=== PATIENT | female | born 1965 | race African-American/Black ===

== ENCOUNTER 2019-05-19 05:50 | Inpatient (IN) | payer OTHER ==
[2019-05-13 12:54] LABS: BASOPHILS % (AUTO) 1.2 % (0.0-2.0); HEMATOCRIT 38.6 % (36-46); HEMOGLOBIN 12.4 g/dL (12.0-16.0); LYMPHOCYTES # (AUTO) 1.8 K/uL (1.0-4.8); LYMPHOCYTES % (AUTO) 24.4 % (22.0-44.0); MEAN CORPUSCULAR HEMOGLOBIN 29.7 pg (26.0-34.0); MEAN CORPUSCULAR HGB CONC 32.1 G/dL (31.0-37.0); MEAN CORPUSCULAR VOLUME 93 fL (80-100); MONOCYTES # (AUTO) 0.8 K/uL (0.1-1.0); MONOCYTES % (AUTO) 10.5 % (2.0-9.0); NEUTROPHILS # (AUTO) 4.7 K/uL (1.8-7.7); NEUTROPHILS % (AUTO) 62.9 % (40.0-70.0); PLATELET COUNT (AUTO) 374 K/uL (150-450); RED BLOOD CELL COUNT(AUTO) 4.17 MIL/uL (4.00-5.20); RED CELL DISTRIBUTION WIDTH 14.3 % (11.5-14.5)
[2019-05-13 13:02] LABS: ANION GAP 11 mmol/L (8-16); CALCIUM, TOTAL 9.1 mg/dL (8.8-10.5); CARBON DIOXIDE 24 mmol/L (22-29); CHLORIDE 106 mmol/L (98-107); CREATININE 1.08 mg/dL (0.60-1.30); GLOMERULAR FILTR. RATE CALC > 60 mL/min (>60); GLUCOSE,RANDOM 215 mg/dL (70-110); POTASSIUM 3.8 mmol/L (3.5-5.1); SODIUM SERUM 141 mmol/L (136-145); UREA NITROGEN, BLOOD 16 mg/dL (7-18)
[2019-05-13 13:07] LABS: ALANINE AMINOTRANSFERASE 29 U/L (12-78); ALBUMIN 3.4 g/dL (3.4-5.0); ALKALINE PHOSPHATASE 117 U/L (46-116); ASPARTATE AMINOTRANSFERASE 15 U/L (15-37); BILIRUBIN,TOTAL 0.5 mg/dL (0.1-1.0); INR 0.9 (0.9-1.1); PROTHROMBIN TIME 9.6 SEC (9.4-11.6); TOTAL PROTEIN, SERUM 7.4 g/dL (6.4-8.2)
[2019-05-13 13:08] LABS: HEMOGLOBIN A1C 7.5 % (4.5-6.2)
[~2019-05-19] VITALS: Ht 160 cm; Wt 121.4 kg
[2019-05-19] MEDS ORDERED: RINGERS SOLUTION,LACTATED 1,000 ML IV ONE ×2 (06:00→08:49)
[2019-05-19] MEDS ORDERED: CLINDAMYCIN 600 MG/D5% WATER 50 ML IV ONE (06:00)
[2019-05-19] MEDS ORDERED: BUPIVACAINE LIPOSOME/PF 1.3%-13.3MG/ML SUSPENSION 20 ML VIAL INJ ONE (07:00)
[2019-05-19] MEDS ORDERED: BENZOCAINE/MENTHOL LOZENGE PO PRN (07:15)
[2019-05-19] MEDS ORDERED: DiphenhydrAMINE HCL 50 MG/ML VIAL IVP PRN (07:15)
[2019-05-19] MEDS ORDERED: MAG HYDROX/AL HYDROX/SIMETH 30 ML SUSP UDCUP PO PRN (07:15)
[2019-05-19] MEDS ORDERED: ZOLPIDEM TARTRATE 10 MG TABLET PO PRN (07:15)
[2019-05-19] MEDS ORDERED: MEPERIDINE-PF 25 MG/ML VIAL IVP PRN (07:15)
[2019-05-19] MEDS ORDERED: ONDANSETRON HCL 4 MG/2 ML VIAL IVP PRN (07:15)
[2019-05-19] MEDS ORDERED: FentaNYL CITRATE-PF 100 MCG/2 ML VIAL IVP PRN (07:15)
[2019-05-19] MEDS ORDERED: CYCLOBENZAPRINE HCL 10 MG TABLET PO PRN (07:15)
[2019-05-19] MEDS ORDERED: PROPOFOL 1000 MG/ISO-OSM 100 ML IV ONE (07:27)
[2019-05-19] MEDS: OXYGEN THERAPY IH SCH ×2 (08:00→20:20)
[2019-05-19] MEDS ORDERED: SUGAMMADEX SODIUM 200 MG/2 ML VIAL IVP ONE (08:01)
[2019-05-19 08:12] LABS: GLUCOMETER DEV NAME(LOC) SDS.; GLUCOSE,POINT OF CARE 162 MG/DL (70-110)
[2019-05-19] MEDS: DOCUSATE SODIUM 100 MG CAPSULE PO SCH ×2 (09:00→20:19)
[2019-05-19] MEDS ORDERED: HYDROmorphone 2 MG/ML SYRINGE ONE (10:11)
[2019-05-19] MEDS: HYDROmorphone 2 MG/ML SYRINGE IVP PRN ×5 (10:14→20:20)
[2019-05-19] MEDS ORDERED: MEPERIDINE-PF 25 MG/ML VIAL ONE (10:33)
[2019-05-19 11:32] VITALS: BP 163/87
[2019-05-19 15:36] VITALS: BP 141/79
[2019-05-19 20:00] VITALS: BP 141/71
[2019-05-19 20:06] LABS: GLUCOMETER DEV NAME(LOC) 4E.2; GLUCOSE,POINT OF CARE 241 MG/DL (70-110)
[2019-05-19 21:24] LABS: GLUCOMETER DEV NAME(LOC) 4E.2; GLUCOSE,POINT OF CARE 231 MG/DL (70-110)
[2019-05-19] MEDS ORDERED: ALBUTEROL SULFATE HFA 90 MCG/PUFF 8 GM INHALER IH PRN (21:45)
[2019-05-19] MEDS ORDERED: ADV250 IH (22:00)
[2019-05-19] MEDS ORDERED: NPH,100V SQ (22:00)
[2019-05-19] MEDS ORDERED: LISI-662 PO (22:00)
[2019-05-19] MEDS ORDERED: ACET125T2 PO (22:00)
[2019-05-19] MEDS ORDERED: HYDR-2924 PO (22:00)
[2019-05-19] MEDS ORDERED: KDUR10 PO (22:00)
[2019-05-19] MEDS ORDERED: CLON0.1T2 PO (22:00)
[2019-05-19] MEDS ORDERED: INSU100V3 SQ ×2 (22:00)
[2019-05-19] MEDS ORDERED: ATOR40TA28 PO (22:00)
[2019-05-19] MEDS ORDERED: INSULIN REGULAR, HUMAN 100 UNITS/ML SQ SCH (22:15)
[2019-05-19] MEDS: INSULIN NPH, HUMAN ISOPHANE 100 UNITS/ML SQ SCH (22:29)
[2019-05-20] VITALS (7 sets, daily range): BP systolic 105–149; BP diastolic 51–88
[2019-05-20] MEDS ORDERED: PROPOFOL 1% 20 ML VIAL IVP ONE (05:31)
[2019-05-20] MEDS ORDERED: DEXAMETHASONE SOD PHOS 4 MG/ML VIAL IVP ONE (05:31)
[2019-05-20] MEDS ORDERED: ROCURONIUM BROMIDE 10 MG/ML 5 ML VIAL IVP ONE (05:31)
[2019-05-20] MEDS ORDERED: SUCCINYLCHOLINE CHLORIDE 20 MG/ML 10 ML VIAL IVP ONE (05:31)
[2019-05-20] MEDS ORDERED: FentaNYL CITRATE-PF 100 MCG/2 ML VIAL IVP ONE (05:31)
[2019-05-20] MEDS ORDERED: ONDANSETRON HCL 4 MG/2 ML VIAL IVP ONE (05:31)
[2019-05-20 06:30] LABS: GLUCOMETER DEV NAME(LOC) 6N.2; GLUCOSE,POINT OF CARE 216 MG/DL (70-110)
[2019-05-20] MEDS: OXYGEN THERAPY IH SCH (08:00)
[2019-05-20] MEDS: CloNIDine HCL 0.1 MG TABLET PO SCH ×3 (08:21→20:30)
[2019-05-20] MEDS: DOCUSATE SODIUM 100 MG CAPSULE PO SCH ×2 (08:21→20:30)
[2019-05-20] MEDS: FERROUS GLUCONATE 324 MG TABLET PO SCH (08:22)
[2019-05-20] MEDS: LABETALOL HCL 100 MG TABLET PO SCH ×2 (08:22→20:35)
[2019-05-20] MEDS: OxyCODONE HCL/ACETAMINOPHEN 10-325 MG TABLET PO PRN ×2 (08:22→20:31)
[2019-05-20] MEDS: HydrALAZINE HCL 50 MG TABLET PO SCH ×2 (08:22→20:31)
[2019-05-20] MEDS: LISINOPRIL 20 MG TABLET PO SCH (08:23)
[2019-05-20] MEDS: AmLODIPine BESYLATE 5 MG TABLET PO SCH (08:23)
[2019-05-20] MEDS: ASPIRIN 81 MG CHEWABLE TABLET PO SCH (08:24)
[2019-05-20] MEDS: INSULIN REGULAR, HUMAN 100 UNITS/ML SQ SCH ×2 (08:26→17:45)
[2019-05-20] MEDS: INSULIN NPH, HUMAN ISOPHANE 100 UNITS/ML SQ SCH ×2 (08:33→20:55)
[2019-05-20] MEDS: HYDROmorphone 2 MG/ML SYRINGE IVP PRN ×3 (11:56→18:17)
[2019-05-20 17:47] LABS: GLUCOMETER DEV NAME(LOC) 4E.2; GLUCOSE,POINT OF CARE 171 MG/DL (70-110)
[2019-05-20] MEDS ORDERED: ACET250T27 PO (17:47)
[2019-05-20] MEDS: ATORVASTATIN CALCIUM 40 MG TABLET PO SCH (20:30)
[2019-05-20] MEDS: FLUTICASONE/SALMETEROL 250 MCG-50 MCG/INH DISKUS INHALER [28] IH SCH (20:53)
[2019-05-20 21:18] LABS: GLUCOMETER DEV NAME(LOC) 6N.2; GLUCOSE,POINT OF CARE 137 MG/DL (70-110)
[2019-05-21 04:45] VITALS: BP 138/86
[2019-05-21 07:40] VITALS: BP 151/81
[2019-05-21] MEDS: AmLODIPine BESYLATE 5 MG TABLET PO SCH (08:15)
[2019-05-21] MEDS: FERROUS GLUCONATE 324 MG TABLET PO SCH (08:16)
[2019-05-21] MEDS: HydrALAZINE HCL 50 MG TABLET PO SCH ×2 (08:16→21:11)
[2019-05-21] MEDS: DOCUSATE SODIUM 100 MG CAPSULE PO SCH ×2 (08:16→21:12)
[2019-05-21] MEDS: ASPIRIN 81 MG CHEWABLE TABLET PO SCH (08:17)
[2019-05-21] MEDS: FLUTICASONE/SALMETEROL 250 MCG-50 MCG/INH DISKUS INHALER [28] IH SCH ×2 (08:18→21:11)
[2019-05-21] MEDS: OXYGEN THERAPY IH SCH (08:18)
[2019-05-21] MEDS: LISINOPRIL 20 MG TABLET PO SCH (08:21)
[2019-05-21] MEDS: INSULIN REGULAR, HUMAN 100 UNITS/ML SQ SCH ×2 (08:26→17:27)
[2019-05-21] MEDS: INSULIN NPH, HUMAN ISOPHANE 100 UNITS/ML SQ SCH ×2 (08:26→21:37)
[2019-05-21] MEDS ORDERED: HYDROmorphone 2 MG/ML SYRINGE IVP PRN (08:30)
[2019-05-21] MEDS: LABETALOL HCL 100 MG TABLET PO SCH ×2 (09:00→21:12)
[2019-05-21] MEDS: CloNIDine HCL 0.1 MG TABLET PO SCH ×3 (09:00→21:38)
[2019-05-21 11:25] VITALS: BP 135/56
[2019-05-21] MEDS: OxyCODONE HCL/ACETAMINOPHEN 10-325 MG TABLET PO PRN ×3 (11:35→21:13)
[2019-05-21 15:55] VITALS: BP 150/86
[2019-05-21 17:17] LABS: GLUCOMETER DEV NAME(LOC) 4E.2; GLUCOSE,POINT OF CARE 141 MG/DL (70-110)
[2019-05-21 17:18] LABS: GLUCOMETER DEV NAME(LOC) 4E.2; GLUCOSE,POINT OF CARE 137 MG/DL (70-110)
[2019-05-21 21:00] VITALS: BP 138/84
[2019-05-21] MEDS: ATORVASTATIN CALCIUM 40 MG TABLET PO SCH (21:12)
[2019-05-21 23:07] LABS: GLUCOMETER DEV NAME(LOC) 6N.2; GLUCOSE,POINT OF CARE 225 MG/DL (70-110)
[2019-05-21 23:07] LABS: GLUCOMETER DEV NAME(LOC) 6N.2; GLUCOSE,POINT OF CARE 133 MG/DL (70-110)
[2019-05-22 00:26] VITALS: BP 100/55
[2019-05-22] MEDS: OxyCODONE HCL/ACETAMINOPHEN 10-325 MG TABLET PO PRN ×4 (04:00→15:15)
[2019-05-22 04:58] VITALS: BP 118/65
[2019-05-22 06:31] LABS: GLUCOMETER DEV NAME(LOC) 6N.2; GLUCOSE,POINT OF CARE 115 MG/DL (70-110)
[2019-05-22] MEDS: OXYGEN THERAPY IH SCH (08:00)
[2019-05-22 08:07] VITALS: BP 143/77
[2019-05-22] MEDS: DOCUSATE SODIUM 100 MG CAPSULE PO SCH (08:33)
[2019-05-22] MEDS: HydrALAZINE HCL 50 MG TABLET PO SCH (08:33)
[2019-05-22] MEDS: FERROUS GLUCONATE 324 MG TABLET PO SCH (08:33)
[2019-05-22] MEDS: ASPIRIN 81 MG CHEWABLE TABLET PO SCH (08:33)
[2019-05-22] MEDS: LABETALOL HCL 100 MG TABLET PO SCH (08:33)
[2019-05-22] MEDS: CloNIDine HCL 0.1 MG TABLET PO SCH ×2 (08:33→15:15)
[2019-05-22] MEDS: LISINOPRIL 20 MG TABLET PO SCH (08:34)
[2019-05-22] MEDS: AmLODIPine BESYLATE 5 MG TABLET PO SCH (08:34)
[2019-05-22] MEDS: INSULIN NPH, HUMAN ISOPHANE 100 UNITS/ML SQ SCH (08:40)
[2019-05-22] MEDS: INSULIN REGULAR, HUMAN 100 UNITS/ML SQ SCH (08:42)
[2019-05-22] MEDS: FLUTICASONE/SALMETEROL 250 MCG-50 MCG/INH DISKUS INHALER [28] IH SCH (08:44)
[2019-05-22 11:12] VITALS: BP 107/69
[2019-05-22 18:44] LABS: GLUCOMETER DEV NAME(LOC) 4E.2; GLUCOSE,POINT OF CARE 172 MG/DL (70-110)
[2019-05-28] MEDS ORDERED: SENN-2 PO (06:16)
[2019-05-28] MEDS ORDERED: LISI-662 PO (06:16)
[2019-05-28] MEDS ORDERED: LABE100T8 PO (06:16)
[2019-05-28] MEDS ORDERED: CLON0.1T2 PO (06:16)
[2019-05-28] MEDS ORDERED: GABA-583 PO (06:16)
[2019-05-28] MEDS ORDERED: MORP15 PO (06:16)
[2019-05-28] MEDS ORDERED: AMLO5TAB9 PO (06:16)
[2019-05-28] MEDS ORDERED: ASPI81 PO (06:16)
[2019-05-28] MEDS ORDERED: ATOR40TA28 PO (06:16)
[2019-05-28] MEDS ORDERED: DOCU-275 PO (06:16)
[2019-05-28] MEDS ORDERED: FERG325 PO (06:16)
[2019-05-28] MEDS ORDERED: FLUT1BLS IH (12:02)
[2019-05-28] MEDS ORDERED: INSNPH SQ (12:04)
[2019-05-28] MEDS ORDERED: ASPI-1182 PO (12:07)
[2019-05-28] MEDS ORDERED: METH500T7 PO (12:10)
[2019-05-28] MEDS ORDERED: OXYC-601 PO (12:11)
== END 2019-05-22 15:40 | DRG 460 ==
LOC: 4E 05:50
PROVIDERS: ADMIT Orthopaedic Surgery Orthopaedic Surgery of the Spine; ATTEND Orthopaedic Surgery Orthopaedic Surgery of the Spine
PROC: 0SG30A0 Fusion of Lumbosacral Joint with Interbody Fusion Device, Anterior Approach, Anterior Column, Open Approach (ICD-10-PCS; 2019-05-19)
PROC: 0SB20ZZ Excision of Lumbar Vertebral Disc, Open Approach (ICD-10-PCS; 2019-05-19)
PROC: 0SB40ZZ Excision of Lumbosacral Disc, Open Approach (ICD-10-PCS; 2019-05-19)
PROC: 0SG00A0 Fusion of Lumbar Vertebral Joint with Interbody Fusion Device, Anterior Approach, Anterior Column, Open Approach (ICD-10-PCS; principal; 2019-05-19 08:15)
DX: M48.061 Spinal stenosis, lumbar region without neurogenic claudication (principal); M48.07 Spinal stenosis, lumbosacral region
CPT/HCPCS: 83036; 87081; 93005; 94761; 97116; 97162; 97166; 97530; 97535; C9290; G0238; G0378; J0330; J1100; J1170; J1815; J2175; J2405; J2704; J3010; J3490; J3535; J7120